=== PATIENT | male | born 1965 | race Hispanic/Latino ===

== ENCOUNTER 2018-03-05 14:47 | Emergency (ER) | payer OTHER, MEDICARE ==
[~2018-03-05 14:47] MED LIST: ASPI-1181 PO; ATOR40TA71 PO; CELE100 PO; FINA5TAB41 PO; FISH1CAP49 PO; GABA-531 PO; MULT-603 PO; OMEP20CA10 PO; SAW/1TAB2 PO; TRAM50TA4 PO; VENL75 PO
[2018-03-05] MEDS ORDERED: DEXAMETHASONE SOD PHOSPHATE 10MG/ML 1ML VIAL ONE (15:16)
[2018-03-05] MEDS ORDERED: KETOROLAC TROMETHAMINE 30MG/ML ONE (15:16)
[2018-03-05 15:29] LABS: EOSINOPHILS % (AUTO) 2.2 % (0.0-8.0); HEMATOCRIT 40.8 % (42-54); LYMPHOCYTES % (AUTO) 43.7 % (21.0-51.0); MEAN CORPUSCULAR HEMOGLOBIN 30.9 pg (27.0-33.0); MEAN CORPUSCULAR HGB CONC 33.9 g/dL (32.0-36.0); MEAN CORPUSCULAR VOLUME 91.1 fL (79-99); MONOCYTES % (AUTO) 8.2 % (3.0-13.0); NEUTROPHILS % (AUTO) 44.9 % (40.0-77.0); PLATELET COUNT (AUTO) 269 K/uL (130-400); RED BLOOD CELL COUNT(AUTO) 4.48 MIL/uL (4.50-6.20); RED CELL DISTRIBUTION WIDTH 13.9 % (11.0-15.5); WHITE BLOOD COUNT (AUTO) 7.6 K/uL (4.8-10.8)
[2018-03-05 15:39] LABS: CARBON DIOXIDE 29 mmol/L (21-32); CHLORIDE 106 mmol/L (101-111); CREATININE 0.9 mg/dL (0.5-1.5); GLOMERULAR FILTR. RATE CALC 95 mL/min (>60); GLUCOSE,RANDOM 105 mg/dL (70-105); POTASSIUM 4.5 mmol/L (3.5-5.1); SODIUM SERUM 139 mmol/L (136-145); UREA NITROGEN, BLOOD 16 mg/dL (7-18)
[2018-03-05 15:44] LABS: CRP QUANTITATIVE < 2.00 mg/L (0.00-9.0)
[2018-03-05] MEDS ORDERED: ONDANSETRON HCL 4 MG/2 ML VIAL ONE (16:18)
[2018-03-05] MEDS ORDERED: MORPHINE SULFATE 8 MG/ML VIAL ONE (16:19)
[2018-03-05 16:49] LABS: ERYTHROCYTE SEDIMENTATION RATE 18 MM/HR (0-20)
== END 2018-03-05 17:47 | disposition home or self-care (01) ==
LOC: EDH 14:47
DX: M11.261 Other chondrocalcinosis, right knee (principal); M11.271 Other chondrocalcinosis, right ankle and foot; E78.5 Hyperlipidemia, unspecified; Z85.46 Personal history of malignant neoplasm of prostate
CPT/HCPCS: 36415; 73562; 73610; 80048; 84550; 85025; 85651; 86140; 93971; 96374; 96375 ×2; 99285; J1100; J1885; J2270; J2405

== ENCOUNTER 2021-04-26 13:56 | Emergency (ER) | payer MEDICARE ==
[~2021-04-26] VITALS: Ht 172.7 cm; Wt 90.7 kg
[~2021-04-26 13:56] MED LIST changes: -ASPI-1181 PO; +ASPI-1443 PO; -OMEP20CA10 PO; +OMEP20CA12 PO
[2021-04-26] MEDS ORDERED: KETOROLAC 30MG VIAL (30MG/ML) IM SCH (14:00)
[2021-04-26] MEDS ORDERED: NAPR500T6 PO (15:16)
[2021-04-26 15:44] VITALS: BP 125/75
== END 2021-04-26 15:45 | disposition home or self-care (01) ==
LOC: EDH 13:56
DX: S62.102A Fracture of unspecified carpal bone, left wrist, initial encounter for closed fracture (principal); Z79.1 Long term (current) use of non-steroidal anti-inflammatories (NSAID); Z79.82 Long term (current) use of aspirin; Z79.899 Other long term (current) drug therapy; W01.0XXA Fall on same level from slipping, tripping and stumbling without subsequent striking against object, initial encounter; Y93.89 Activity, other specified; Y92.89 Other specified places as the place of occurrence of the external cause; Y99.8 Other external cause status
CPT/HCPCS: 29125; 96372; 73100; 99283; J1885

== ENCOUNTER 2022-04-10 10:33 | Emergency (ER) | payer MEDICARE ==
[~2022-04-10] VITALS: Ht 172.7 cm; Wt 93.2 kg
[~2022-04-10 10:33] MED LIST changes: +NAPR500T6 PO
[2022-04-10 10:34] VITALS: BP 134/89
[2022-04-10] MEDS ORDERED: DEXAMETHASONE SOD PHOSPHATE 4 MG/ML 1ML VIAL IM STA (10:45)
[2022-04-10] MEDS ORDERED: PRED5TAB PO (10:56)
== END 2022-04-10 11:06 | disposition home or self-care (01) ==
LOC: EDH 10:33
DX: N48.89 Other specified disorders of penis (principal); E78.00 Pure hypercholesterolemia, unspecified; I10 Essential (primary) hypertension; Z98.890 Other specified postprocedural states; Z79.899 Other long term (current) drug therapy
CPT/HCPCS: 99283; 96372; J1100

== ENCOUNTER → 2023-05-27 | Outpatient (CLI) | payer MEDICARE, OTHER ==
[~2023-05-27] MED LIST changes: +PRED5TAB PO
== END | disposition home or self-care (01) ==
LOC: RAH 07:23
PROVIDERS: ATTEND Family Medicine
DX: K76.0 Fatty (change of) liver, not elsewhere classified (principal); R10.13 Epigastric pain
CPT/HCPCS: 76700